=== PATIENT | male | born 1940 | race Caucasian/White ===

== ENCOUNTER 2018-10-11 11:48 | Emergency (ER) | payer BC ==
[2018-10-11] MEDS ORDERED: ACETAMINOPHEN 325 MG TABLET (FP) PO ONE (11:58)
[2018-10-11 12:04] VITALS: BP 109/60; PULSE 68; TEMP 97.7; BMI 26.6
[2018-10-11] MEDS ORDERED: ACETAMINOPHEN 325 MG TABLET (FP) ONE (12:07)
--- NOTE | 2018-10-11 12:26 | PDOC ---
History of Present Illness - General Chief Complaint: Pain Stated Complaint: LEFT HAND AND ARM PAIN FOR 2 DAYS Time Seen by Provider: 10/11/18 11:58 History Source: Patient Exam Limitations: No Limitations - History of Present Illness Initial Comments: 10/11/18 12:22 78 yo M ho carpal tunnel, here with c/o worsening left wrist pain. pt state he was raking 3 days ago, which he feels may have exacerbated his carpal tunnel. today noted his hand is swollen, and last night had worsening carpal tunnel sxs of pain radiating up wrist pins and needles sensation and was unable to sleep. did take motrin which relieved his pain slightly. no f/c did not have a fall. does drink etoh 6 drinks/ week. no elbow or shoulder pain. no known h/o gout. has been wearing splint on left wrist today, feels constricting making pain worse. Past History - Past Medical History Allergies/Adverse Reactions: Allergies Allergy/AdvReac Type Severity Reaction Status Date / Time No Known Allergies Allergy Unverified 10/11/18 11:49 Home Medications: Ambulatory Orders Aspirin [Ecotrin] 81 mg PO DAILY 10/11/18 Cephalexin [Keflex] 500 mg PO TID #21 capsule 10/11/18 Chlorthalidone [Hygroton -] 25 mg PO DAILY 10/11/18 Clopidogrel Bisulfate [Plavix] 75 mg PO DAILY 10/11/18 Losartan Potassium 50 mg PO DAILY 10/11/18 Rosuvastatin Calcium [Crestor] 40 mg PO DAILY 10/11/18 Cardiac Disorders: Yes COPD: No - Surgical History Cardiac Surgery: Yes (TRIPLE BYPASS) - Suicide/Smoking/Psychosocial Hx Smoking History: Current every day smoker Have you smoked in the past 12 months: Yes Number of Cigarettes Smoked Daily: 20 Information on smoking cessation initiated: Yes 'Breaking Loose' booklet given: 10/11/18 Hx Alcohol Use: Yes (6 BEERS/DAY) Drug/Substance Use Hx: No Substance Use Type: Alcohol Review of Systems - Review of Systems Constitutional: No: Chills, Diaphoresis Respiratory: No: Cough, Shortness of Breath Cardiac (ROS): No: Chest Pain Musculoskeletal: Yes: Joint Pain. No: Back Pain, Gout Integumentary: Yes: Erythema Neurological: Yes: Tingling Endocrine: No: Excessive Sweating Hematologic/Lymphatic: No: Anemia, Easy Bleeding All Other Systems: Reviewed and Negative *Physical Exam - Vital Signs Last Vital Signs Temp Pulse Resp BP Pulse Ox 97.7 F 68 16 109/60 97 10/11/18 11:49 10/11/18 11:49 10/11/18 11:49 10/11/18 11:49 10/11/18 11:49 - Physical Exam Comments: 10/11/18 12:24 awake alert. left arm noted for swelling left wrist at and ttp at base cmc joint near snuff box, and volar aspect. erythema and warmth to base cmc joint. swelling stops just at wrist joint. no streaking. pain with abd/ ext of thumb. elbow / shoulder NT FROM. skin otherwise intact. nuero /v intact. 2 + radial / ulnar pulses. bilaterally . Procedures - Splinting Splint Location: Left: Wrist Splint Type: Yes: Thumb Spica ED Treatment Course - LABORATORY CBC & Chemistry Diagram: 10/11/18 12:16 10/11/18 14:31 - RADIOLOGY Radiology Studies Ordered: Category Date Time Status HAND- LEFT [RAD] Stat Radiology 10/11/18 11:57 Taken - Medications Given in the ED: ED Medications Discontinued Medications Generic Name Dose Route Start Last Admin Trade Name Freq PRN Reason Stop Dose Admin Acetaminophen 650 mg 10/11/18 11:58 10/11/18 12:16 Tylenol - PO 10/11/18 11:59 650 mg ONCE ONE Administration Medical Decision Making - Medical Decision Making 10/11/18 12:25 differential: gout, thumb strain, scapoid injury, exacerbated carpal tunnel from swelling. plan xray, labs. no other signs of infection. tylenol for pain. leander thumb spica splint and hand followup. 10/11/18 14:02 pt with normal wbc count. xray negative for injury, inicdental finding of hyponatremia. pt not having sxs of nause, vomiting headaches or confusion. states no known h/o hyponatremia. paged dr. philipp hawkins, awaiting call back. leander due to medication on losartan and Chlorthiadone. (ARB And diuretic ) both can cuase. pt unwilling to stay for correction. given 1 L NS, will repeat. told to follow up with Dr. Hawkins within 48 hrs. sxs given to prompt return . thumb spica splint placed. follow up wtih dr. smiley. 10/11/18 14:29 d/wpt pcp dr. anne, will see on sunday. will start on keflex prophylactically and motrin as needed for pain. splint for comfort 10/11/18 15:15 fluid bolus given , repeat sodium unchanged. no worse. will see omid on sunday. *DC/Admit/Observation/Transfer Diagnosis at time of Disposition: Hyponatremia, Thumb injury, Carpal tunnel syndrome of left wrist - Discharge Dispostion Disposition: HOME Condition at time of disposition: Stable - Prescriptions Prescriptions: Cephalexin [Keflex] 500 mg PO TID #21 capsule - Referrals Referrals: Edmundo Smiley MD [Staff Physician] - Philipp Hawkins MD [Staff Physician] - - Patient Instructions Printed Discharge Instructions: Sports-Related Wrist and Hand Injuries, Wrist Sprain, Hyponatremia-Adult Additional Instructions: your sodium is low at 129. you need to have follow up Dr Hawkins within 2 4 - 48 hrs. you should return immediately for intractable vomiting, confusion or any concerns. this is possible due to your diuretic blood pressure medication. you should discuss this with your primary doctor and it should be discontinued, but must be replaced with another blood pressure pill. for you hand your xray of the wrist is negative for broken bones. however, sometimes scaphoid injuries do not show up on xray. therefore you should wear a splint until you follow up with dr. smiley. you should see dr. smiley within one week. wear splin for comfort. elevate your hand to reduce swelling. take ibuprofen 400 mg every 8 hrs as needed for pain. take keflex 500 mg three times daily x one week. wear splint until followup for comfort. - Post Discharge Activity
[2018-10-11 12:37] LABS: HEMATOCRIT 44.1 % (35.4-49); HEMOGLOBIN 14.9 GM/dl (11.7-16.9); MCH 31.4 pg (25.7-33.7); MCHC 33.8 g/dl (32.0-35.9); MEAN PLT VOLUME 8.5 fl (7.5-11.1); NEUT % 73.3 % (42.8-82.8); PLATELET COUNT 344 K/MM3 (134-434); RBC 4.74 M/mm3 (4.00-5.60); RDW 12.1 % (11.9-15.9); WHITE BLOOD COUNT 10.3 K/mm3 (4.0-10.8)
[2018-10-11 12:38] LABS: EOS % 1.6 % (0-4.5); LYMPH % 11.3 % (8-40); MONO % 11.8 % (3.8-10.2)
[2018-10-11 12:39] LABS: ALBUMIN 3.8 g/dl (3.5-5.0); ALK PHOS 64 U/L (32-92); ANION GAP 9 MMOL/L (8-16); BILIRUBIN,TOTAL 0.8 mg/dl (0.2-1.0); BLOOD UREA NITROGEN 13 mg/dl (7-18); CALCIUM 9.3 mg/dl (8.4-10.2); CHLORIDE 96 mmol/L (98-107); CO2 24 mmol/L (22-28); CREATININE 0.7 mg/dl (0.6-1.3); GLUCOSE,RANDOM 98 mg/dl (74-106); POTASSIUM 3.5 mmol/L (3.5-5.1); SGOT/AST 21 U/L (10-42); SGPT/ALT 18 U/L (10-40); SODIUM 129 mmol/L (136-145); TOT PROT 6.7 g/dl (6.4-8.3); URIC ACID 5.8 mg/dl (2.6-7.2)
[2018-10-11] MEDS ORDERED: SODIUM CHLORIDE 0.9% 1000 ML INFUS.BAG IV ONE (13:01)
[2018-10-11 14:48] LABS: ANION GAP 7 MMOL/L (8-16); BLOOD UREA NITROGEN 13 mg/dl (7-18); CALCIUM 8.4 mg/dl (8.4-10.2); CHLORIDE 99 mmol/L (98-107); CO2 23 mmol/L (22-28); CREATININE 0.8 mg/dl (0.6-1.3); GLUCOSE,RANDOM 94 mg/dl (74-106); POTASSIUM 3.1 mmol/L (3.5-5.1); SODIUM 129 mmol/L (136-145)
== END 2018-10-11 15:33 | disposition home or self-care (01) ==
LOC: FER 11:48
PROC: 3E0337Z Introduction of Electrolytic and Water Balance Substance into Peripheral Vein, Percutaneous Approach (ICD-10-PCS; principal; 2018-10-11)
DX: G56.02 Carpal tunnel syndrome, left upper limb (principal); E87.1 Hypo-osmolality and hyponatremia; S69.92XA Unspecified injury of left wrist, hand and finger(s), initial encounter; X58.XXXA Exposure to other specified factors, initial encounter; Y93.89 Activity, other specified; Y92.89 Other specified places as the place of occurrence of the external cause
CPT/HCPCS: 36415; 73130-TC-LT-FY; 80048; 80053; 84550; 85025; 85651; 99283-25; J7030

== ENCOUNTER 2018-11-21 06:17 | Day surgery (SDC) | payer BC ==
[2018-11-14 14:29] VITALS: BMI 25.8
[~2018-11-21 06:17] MED LIST: BUPIVACAINE HCL/PF 0.5% (5MG/ML) 10 ML VIAL IJ ONE; LIDOCAINE HCL 1%, 10 MG/ML (20ML VIAL) INF ONE
[2018-11-21] MEDS ORDERED: BUPIVACAINE HCL/PF 0.5% (5MG/ML) 10 ML VIAL ONE (07:15)
[2018-11-21] MEDS ORDERED: LIDOCAINE HCL 1%, 10 MG/ML (20ML VIAL) ONE (07:15)
[2018-11-21] MEDS ORDERED: MIDAZOLAM HCL 2 MG/2 ML SINGLE DOSE VIAL ONE (07:55)
[2018-11-21] MEDS ORDERED: LIDOCAINE HCL/PF 2% SDV 5ML VIAL ONE (07:55)
[2018-11-21] MEDS ORDERED: PROPOFOL 20 ML ONE ×2 (07:55→07:56)
[2018-11-21] MEDS ORDERED: ceFAZolin SODIUM 1 GM VIAL ONE (07:55)
[2018-11-21] MEDS ORDERED: ceFAZolin SODIUM 1 GM VIAL IVPB ONE (08:20)
--- NOTE | 2018-11-21 08:22 | HP ---
Satellite [facility] - Chief Complaint Chief Complaint: left hand pain, numbness, tingling History of Present Illness: left CTS History Source: Patient Limitations to Obtaining History: No Limitations - Past Medical History Allergies/Adverse Reactions: Allergies Allergy/AdvReac Type Severity Reaction Status Date / Time No Known Allergies Allergy Unverified 10/11/18 11:49 - Current Medications Current Medications: Home Medications Medication Instructions Recorded Aspirin [Ecotrin] 81 mg PO DAILY 10/11/18 Chlorthalidone [Hygroton -] 25 mg PO DAILY 10/11/18 Clopidogrel Bisulfate [Plavix] 75 mg PO DAILY 10/11/18 Losartan Potassium 50 mg PO DAILY 10/11/18 Rosuvastatin Calcium [Crestor] 40 mg PO DAILY 10/11/18 Satellite Physical Exam - Physical Examination Vital Signs: Vital Signs Period Temp Pulse Resp BP Sys/Josue Pulse Ox Last 24 Hr 98.2 F 64 16 134/55 98 General Appearance: Well Nourished ENT: Clear Lung: Clear to auscultation Heart: Regular rate & rhythm Breasts: Soft Abdomen: Soft Extremities: No edema Satellite Impression/Plan - Impression/Plan Impression: left CTS Operative Procedure: left CTR Date to be Performed: 11/21/18
[2018-11-21] MEDS ORDERED: KETOROLAC TROMETHAMINE 30 MG/1 ML VIAL ONE (08:23)
[2018-11-21] MEDS ORDERED: BUPIVACAINE HCL/PF 0.5% (5MG/ML) 10 ML VIAL IJ ONE (08:34)
[2018-11-21] MEDS ORDERED: LIDOCAINE HCL 1%, 10 MG/ML (20ML VIAL) INF ONE (08:34)
--- NOTE | 2018-11-21 09:14 | OP ---
Operative Note - Note: Operative Date: 11/21/18 Pre-Operative Diagnosis: left CTS, tenosynovitis Operation: left CTR, tenosynovectomy Post-Operative Diagnosis: Same as Pre-op Surgeon: Edmundo Scott Anesthesiologist/HYPERBARIC TECHNICIAN: Teresa Grewal Anesthesia: Local, MAC Specimens Removed: tenosynovium Estimated Blood Loss (mls): 0 Drains, Volume Out (mls): 0 Blood Volume Replaced (mls): 0 Fluid Volume Replaced (mls): 500 Operative Report Dictated: Yes
[2018-11-21 09:44] VITALS: PULSE 53; TEMP 97.3
--- NOTE | 2018-11-21 10:37 | SPEC ---
DATE OF OPERATION: 11/21/2018 PREOPERATIVE DIAGNOSIS: Left carpal tunnel syndrome and tenosynovitis. POSTOPERATIVE DIAGNOSIS: Left carpal tunnel syndrome and tenosynovitis. OPERATION: Left carpal tunnel release and tenosynovectomy. SURGEON: Edmundo Scott M.D. ASSISTANTS: None. ANESTHESIA: MAC, local injection of 12 mL of 0.5% Marcaine and 1% lidocaine mix. ANESTHESIOLOGIST: Teresa Grewal M.D. DRAINS: None. COMPLICATIONS: None. SPECIMENS: Tenosynovium, left wrist. BLOOD LOSS: None. BLOOD GIVEN: None. FLUID REPLACEMENT: 500 mL of plasmalyte. INDICATIONS: This patient is a 78-year-old male with bilateral carpal tunnel syndrome, worse on the left, who understands the potential risks, complications, alternatives, and benefits of surgery versus nonsurgical treatment. The patient understands that the nerve will continue to improve for 6 months. He may not get complete relief of his symptoms, including continuation on numbness and other symptoms. DESCRIPTION OF PROCEDURE: The patient was brought to the operating room, peripheral IV placed and intravenous sedation was given. One gram of intravenous Ancef was given. MAC anesthesia was induced. A tourniquet was applied to the left upper arm and the left upper extremity was prepped and draped in sterile fashion. The entire case was done under 3.8-loupe magnification. A marking pen was utilized to christopher out a longitudinal incision in an already existing skin crease. Twenty mL of 0.5% Marcaine mixed with 1% lidocaine was injected in and around the surgical incision. The left upper extremity was elevated, exsanguinated with an Esmarch bandage and the tourniquet inflated to 250 mmHg. A No. 15-scalpel blade was utilized to cut down through the skin. Subcutaneous hemostasis was achieved with the bipolar cautery. Dissection was done through the superficial palmar fascia. Self-retaining retractors were placed into the wound. Under direct visualization, the transverse carpal ligament was transected with a No. 15-scalpel blade, exposing the median nerve and the contents of the carpal tunnel. The distal and proximal extents of the release were completed with a Littler scissors and checked with irrigation and my small finger. They were seen to be complete. Limited dissection was done on the radial side of the median nerve and more extensive dissection was done on the ulnar side of the median nerve. The patients nerve was seen to be quite compressed by epineurium and therefore a limited epineurotomy was performed. A Ragnell retractor was used to gently retract the median nerve in a radial direction. The patient had a lot of tenosynovitis and therefore a tenosynovectomy was performed of all 9 flexor tendons. This was passed off the field as tenosynovium left wrist. The floor of the carpal tunnel was checked. There were no abnormal masses or ganglion cysts. The area was copiously irrigated and washed out and closure begun. Undyed 4-0 Vicryl was used to close the deep dermal layer. Final skin reapproximation was done with horizontal mattress 4-0 nylon sutures. The area was then washed and dried, covered with Xeroform, 4 x 4's, fluffs between the fingers, Webril and a 4-inch plaster roll was utilized to make a volar splint, which was then wrapped with Sebastian and Coban. The tourniquet was taken down after a total tourniquet time of 22 minutes. There were no complications during the case. The patient tolerated the procedure well and was brought to the ambulatory recovery room in stable condition. Kimi [id number]
[2018-11-21 11:12] VITALS: BP 122/52
--- NOTE | 2018-11-22 11:40 | PATH ---
Surgical Pathology Report Patient Name: ASAD MOREIRA Med. Rec. #: [id number] /Age/Gender: 1940 (Age: 78) / M Account: [id number] Location: [facility] SURGICAL Taken: 11/21/2018 Received: 11/21/2018 Reported: 11/22/2018 Physicians: Edmundo Scott M.D. Specimen(s) Received TENOSYNOVIUM LEFT HAND Clinical History Left carpal tunnel syndrome Final Diagnosis HAND, LEFT, TENOSYNOVIUM, CARPAL TUNNEL RELEASE: BENIGN LOOSE TO DENSE FIBROCONNECTIVE TISSUE. Electronically Signed Azra Jensen M.D. Gross Description Received in formalin labeled "tenosynovium left hand," is a 1.0 x 0.7 x 0.2 cm aggregate of greene-yellow soft tissue fragments, consistent with tenosynovium. The specimen is submitted in toto in one cassette. /11/21/201811/21/2018
== END 2018-11-21 10:30 | disposition home or self-care (01) ==
LOC: JASU-SURG 06:17
PROVIDERS: ATTEND Orthopaedic Surgery
PROC: 01N50ZZ Release Median Nerve, Open Approach (ICD-10-PCS; principal; 2018-11-21 08:00)
DX: G56.02 Carpal tunnel syndrome, left upper limb (principal); M65.88 Other synovitis and tenosynovitis, other site
CPT/HCPCS: 88304-TC

== ENCOUNTER 2021-08-13 12:54 | Emergency (ER) | payer OTHER, BC ==
[2021-08-13 13:20] VITALS: BP 157/68; PULSE 57; TEMP 99.2; BMI 25.8
== END 2021-08-13 14:23 | disposition home or self-care (01) ==
LOC: FER 12:54
DX: S09.90XA Unspecified injury of head, initial encounter (principal); S01.81XA Laceration without foreign body of other part of head, initial encounter; W19.XXXA Unspecified fall, initial encounter; Y92.9 Unspecified place or not applicable
CPT/HCPCS: 70450-TC; 72125-TC; 99284-25